=== PATIENT | female | born 1950 | race Two or more races ===

== ENCOUNTER 2025-02-20 05:25 | Emergency (ER) | payer OTHER ==
[~2025-02-20] VITALS: Ht 167.6 cm; Wt 91.6 kg
[2025-02-20] MEDS ORDERED: DILTIAZEM ER60 MG (05:33)
[2025-02-20] MEDS ORDERED: ARICEPT5 MG (05:33)
[2025-02-20] MEDS ORDERED: PLAVIX75 MG (05:33)
[2025-02-20] MEDS ORDERED: ROPINIROLE HCL0.5 MG PO (05:34)
[2025-02-20] MEDS ORDERED: HYDRALAZINE HCL25 MG (05:34)
[2025-02-20] MEDS ORDERED: IRBESARTAN-HCT1 EAC1 (05:34)
[2025-02-20] MEDS ORDERED: CARDURA XL4 MG (05:34)
[2025-02-20] MEDS ORDERED: KETOROLAC TROMETHAMINE 60 MG VIAL IM ONE (06:00)
[2025-02-20] MEDS ORDERED: TRIAMCINOLONE ACETONIDE 40 MG/ML VIAL IM ONE (06:00)
== END 2025-02-20 08:30 | disposition home or self-care (01) ==
LOC: ER 05:53
DX: M94.0 Chondrocostal junction syndrome [Tietze] (principal); I11.9 Hypertensive heart disease without heart failure; Z86.73 Personal history of transient ischemic attack (TIA), and cerebral infarction without residual deficits; I10 Essential (primary) hypertension
CPT/HCPCS: 36415; 71046; 96372; 99283; J1885; J3301